=== PATIENT | female | born 1970 | race Caucasian/White ===

== ENCOUNTER 2017-08-27 20:56 | Emergency (ER) | payer SELFPAY ==
[~2017-08-27] VITALS: Ht 160 cm; Wt 70.5 kg
[2017-08-27 21:10] VITALS: BP 163/91; PULSE 80; RESP 20; TEMP 98.4; O2SAT 99
[2017-08-27] MEDS ORDERED: HYDR25TA5 PO (23:07)
[2017-08-27] MEDS ORDERED: RAMI5CAP PO (23:07)
[2017-08-27] MEDS ORDERED: VITA-142 PO (23:07)
[2017-08-27] MEDS ORDERED: ASPI-516 CHEW (23:07)
[2017-08-27] MEDS ORDERED: AMLO10TA2 PO (23:07)
[2017-08-27 23:20] VITALS: BP 169/104; PULSE 68; RESP 18; O2SAT 100
[2017-08-28] MEDS ORDERED: cloNIDine HCL 0.1 MG TAB PO ONE
--- NOTE | 2017-08-28 00:02 | RADRPT ---
EXAM DATE: 08/27/2017 11:58 PM EDT AGE/SEX: 47 years / Female INDICATIONS: Elevated blood pressure and headache for 2 days CLINICAL DATA: This is the patient's initial encounter. Patient reports that signs and symptoms have been present for 2 days and indicates a pain score of 4/10. MEDICAL/SURGICAL HISTORY: Hypertension. None. RADIATION DOSE: 54.92 CTDI (mGy) COMPARISON: No prior [facility] exams available for comparison. TECHNIQUE: CT of the head without contrast. Using automated exposure control and adjustment of the mA and/or kV according to patient size, radiation dose was kept as low as reasonably achievable to ob tain optimal diagnostic quality images. FINDINGS: Cerebrum: The ventricles are normal for age. No evidence of midline shift, mass lesion, hemorrhage or acute infarction. No extraaxial fluid collections are seen. Posterior Fossa: The cerebellum and brainstem are intact. The 4th ventricle is midline. The cerebe llopontine angle is unremarkable. Extracranial: The visualized portion of the orbits is intact. There is scattered ethmoid sinus disea se being worse on the left. Skull: The calvaria is intact. No evidence of skull fracture. CONCLUSION: 1. No acute intracranial abnormality is seen. 2. Scattered ethmoid sinus disease. Electronically signed by: Bean Augustin MD 08/28/2017 12:01 AM EDT
--- NOTE | 2017-08-28 00:03 | PD ---
HPI Chief Complaint: Hypertension Time Seen by Provider: 23:22 Travel History International Travel<30 days: No Contact w/Intl Traveler<30days: No Traveled to known affect area: No History of Present Illness HPI Patient comes in stating that she has been having headache, number entire time she has been believing that is due to tooth that she has to have pulled out however every time she goes to the dentist the dentist states that her blood pressures too high to do the procedure and declines her. Patient continues to have pain in that area of her jaw which eventually becomes generalized later on to her entire head. Patient is already being treated with hydrochlorothiazide and lisinopril, she is in the process of getting a primary care physician as well. PFSH Past Medical History Diminished Hearing: No Headaches: Yes Hypertension: Yes Immunizations Current: Yes Tetanus Vaccination: > 5 Years Influenza Vaccination: No ?: Not LMP: 07/08/17 REPORTS IRREGULAR : 4 Para: 3 Miscarriage: 1 Past Surgical History Cardiac Surgery: Yes (LOOP RECORDER PLACED) Section: Yes Eye Surgery: Yes (LASIC BILAT) Social History Alcohol Use: No Tobacco Use: No Substance Use: No Allergies-Medications (Allergen,Severity, Reaction): Coded Allergies: No Known Allergies (Unverified , 08/27/17) Reported Meds & Prescriptions Reported Meds & Active Scripts Active Ultram (Tramadol HCl) 50 Mg Tab 50 Mg PO Q8H PRN Augmentin (Amoxicillin-Clavulanate) 875-125 Mg Tab 1 Tab PO BID 10 Days Reported Vitamin E (Vitamin E Acetate) 400 Unit Capsule 1 Cap PO DAILY Aspirin 81 Mg Chew 81 Mg CHEW DAILY Amlodipine (Amlodipine Besylate) 10 Mg Tab 10 Mg PO DAILY Ramipril 5 Mg Cap 5 Mg PO DAILY Hydrochlorothiazide 25 Mg Tab 25 Mg PO DAILY Review of Systems General / Constitutional: No: Fever Eyes: No: Visual changes HENT: Positive: Headaches Cardiovascular: No: Chest Pain or Discomfort Respiratory: No: Shortness of Breath Gastrointestinal: No: Abdominal Pain Genitourinary: No: Dysuria Musculoskeletal: No: Pain Skin: No Rash Neurologic: No: Weakness Psychiatric: No: Depression Endocrine: No: Polydipsia Hematologic/Lymphatic: No: Easy Bruising Physical Exam Narrative GENERAL: SKIN: Warm and dry. HEAD: Atraumatic. Normocephalic. EYES: Pupils equal and round. No scleral icterus. No injection or drainage. ENT: No nasal bleeding or discharge. Mucous membranes pink and moist. NECK: Trachea midline. No JVD. CARDIOVASCULAR: Regular rate and rhythm. RESPIRATORY: No accessory muscle use. Clear to auscultation. Breath sounds equal bilaterally. GASTROINTESTINAL: Abdomen soft, non-tender, nondistended. MUSCULOSKELETAL: Extremities without clubbing, cyanosis, or edema. No obvious deformities. NEUROLOGICAL: Awake and alert. No obvious cranial nerve deficits. Motor grossly within normal limits. Five out of 5 muscle strength in the arms and legs. Normal speech. PSYCHIATRIC: Appropriate mood and affect; insight and judgment normal. Data Data Last Documented VS Vital Signs Date Time Temp Pulse Resp B/P (MAP) Pulse Ox O2 Delivery O2 Flow Rate FiO2 08/28/17 00:20 78 16 140/91 (107) 98 Room Air 08/27/17 21:[address] Brain W/O Iv Contrast(Rout) (08/27/17 23:24) Clonidine (Catapres) (08/28/17 00:00) Ed Discharge Order (08/28/17 00:14) [facility] Medical Decision Making Medical Screen Exam Complete: Yes Emergency Medical Condition: Yes Medical Record Reviewed: Yes Differential Diagnosis Intracranial hemorrhage versus ischemic infarct versus sinusitis Narrative Course CT head read by the radiologist as no acute intracranial abnormality seen, scattered ethmoid sinus disease is noted. Patient was explained that she is cleared to have her dental procedure, and that the cause of her elevated blood pressure is because of a secondary pain from the toothache as well as sinusitis. Patient voiced understanding and will take her medications as prescribed. However she stated that she is also getting pretty close to being out of her blood pressure medications and she requested a refill as well Diagnosis Primary Impression: Ethmoid sinusitis Additional Impression: Hypertension secondary to pain Patient Instructions: General Instructions, Sinusitis (GEN) Scripts Lisinopril (Lisinopril) 20 Mg Tab 20 MG PO DAILY, #30 TAB 0 Refills Prov: Shreyas Chairez MD 08/28/17 Amlodipine (Amlodipine) 10 Mg Tab 10 MG PO DAILY for Blood Pressure Management, #30 TAB 0 Refills Prov: Shreyas Chairez MD 08/28/17 Hydrochlorothiazide (Hydrochlorothiazide) 25 Mg Tab 25 MG PO DAILY, #30 TAB 0 Refills Prov: Shreyas Chaierz MD 08/28/17 Tramadol (Ultram) 50 Mg Tab 50 MG PO Q8H Y for PAIN, #12 TAB 0 Refills Prov: Shreyas Chairez MD 08/28/17 Amoxicillin-Clavulanate (Augmentin) 875-125 Mg Tab 1 TAB PO BID for Infection for 10 Days, #20 TAB 0 Refills Prov: Shreyas Chairez MD 08/28/17 Disposition: 01 DISCHARGE HOME Condition: Stable Shreyas Chairez MD August 28, 2017 00:03
[2017-08-28] MEDS ORDERED: AUGM875T3 PO (00:14)
[2017-08-28] MEDS ORDERED: TRAM50 PO (00:14)
[2017-08-28 00:20] VITALS: BP 140/91; PULSE 78; RESP 16; O2SAT 98
[2017-08-28] MEDS ORDERED: HYDR25TA5 PO (00:55)
[2017-08-28] MEDS ORDERED: AMLO10TA2 PO (00:55)
[2017-08-28] MEDS ORDERED: LISI-515 PO (00:55)
== END 2017-08-28 01:00 | disposition home or self-care (01) ==
LOC: PHED 20:56
DX: J32.2 Chronic ethmoidal sinusitis (principal); I15.8 Other secondary hypertension
CPT/HCPCS: 70450; 99283